=== PATIENT | female | born 1995 | race Caucasian/White ===

== ENCOUNTER 2017-11-27 22:29 | Emergency (ER) | payer BC, OTHER ==
[~2017-11-27] VITALS: Ht 170.2 cm; Wt 71.7 kg
[2017-11-27] MEDS ORDERED: SODIUM CHLORIDE 0.9% 1,000 ML IV ONE ×2 (22:45→23:15)
[2017-11-27 22:54] LABS: Basophils # (auto) 0 uL; Basophils % (auto) 0.8 % (0.0-2.0); Eosinophils # (auto) 0.1 uL; Hematocrit 42.4 % (36.0-46.0); Hemoglobin 14.4 g/dL (12.2-16.2); Lymphocytes # (auto) 2.1 uL; Lymphocytes % (auto) 34.1 % (10.0-50.0); Mean Corpuscular Hgb Conc. 34.1 g/dL (32.0-36.0); Monocytes # (auto) 0.6 uL; Monocytes % (auto) 10.3 % (0.0-12.0); Neutrophils # (auto) 3.4 uL; Neutrophils % (auto) 53.8 % (37.0-80.0); Nucleated Red Blood Cells % 0.1 %; Platelet Count (auto) 242 10^3/uL (140-450); Red Blood Cells 5.17 10^6/uL (4.0-5.20); White Blood Cell 6.3 10^3/uL (4.4-10.8)
[2017-11-27 23:11] LABS: Albumin 3.8 g/dL (3.4-5.0); BUN/Creatinine Ratio 20.5; Potassium 3.6 mmol/L (3.5-5.1)
[2017-11-27 23:14] LABS: Bilirubin, Total 0.3 mg/dL (0.2-1.0); Total Protein 7.5 g/dL (6.4-8.2)
[2017-11-27] MEDS ORDERED: KETOROLAC TROMETH 30 MG/ML 1ML VIAL IV ONE (23:15)
[2017-11-27 23:46] LABS: INR 0.93 (0.9-1.15)
[2017-11-28 01:18] LABS: Urine Bacteria FEW /hpf (None Seen); Urine Blood Negative /uL (Negative); Urine Specific Gravity 1.013 (1.001-1.035); Urine WBC 1 /hpf (0 - 5)
[2017-11-28 02:00] VITALS: BP 118/62
== END 2017-11-28 02:20 | disposition home or self-care (01) ==
LOC: EEVIPCON 22:29 → ER 22:29
DX: G43.909 Migraine, unspecified, not intractable, without status migrainosus (principal); E86.0 Dehydration
CPT/HCPCS: 36415; 80053; 81001; 81025; 84702; 85025; 85610; 85730; 96360; J1885

== ENCOUNTER 2018-08-04 08:15 | Emergency (ER) | payer BC, OTHER ==
[~2018-08-04] VITALS: Ht 170.2 cm; Wt 74.8 kg
[2018-08-04 08:35] VITALS: BP 121/82
[2018-08-04] MEDS ORDERED: IBUPROFEN 800 MG TAB PO ONE (09:30)
[2018-08-06 10:26] LABS: Hepatitis B Surface Antibody Positive
[2018-08-06 15:47] LABS: Hepatitis B Surface Antigen Negative (Negative)
== END 2018-08-04 10:12 | disposition home or self-care (01) ==
LOC: ER 08:15
DX: S61.032A Puncture wound without foreign body of left thumb without damage to nail, initial encounter (principal); Z88.0 Allergy status to penicillin; Z88.1 Allergy status to other antibiotic agents; W27.3XXA Contact with needle (sewing), initial encounter; Y93.89 Activity, other specified; Y92.69 Other specified industrial and construction area as the place of occurrence of the external cause; Y99.8 Other external cause status
CPT/HCPCS: 36415; 73140; 81025; 86703; 86706; 86803; 87340

== ENCOUNTER 2018-08-27 20:44 | Emergency (ER) | payer OTHER ==
[~2018-08-27] VITALS: Ht 170.2 cm; Wt 74.8 kg
[2018-08-27] MEDS ORDERED: SODIUM CHLORIDE 0.9% 2,000 ML IV ONE (21:00)
[2018-08-27] MEDS ORDERED: MORPHINE SULFATE 4 MG/ML SYR/VIAL IV ONE (21:00)
[2018-08-27] MEDS ORDERED: ONDANSETRON HCL 4 MG/2 ML VIAL IV ONE (21:00)
[2018-08-27] MEDS ORDERED: PROMETHAZINE HCL 25 MG/ML 1ML ONE (21:08)
[2018-08-27] MEDS ORDERED: CLINDAMYCIN 900MG IV 50 ML IV ONE (21:15)
[2018-08-27] MEDS ORDERED: PROMETHAZINE HCL 25 MG/ML 1ML IV ONE (21:15)
[2018-08-27 22:12] LABS: Basophils # (auto) 0.1 uL; Basophils % (auto) 0.6 % (0.0-2.0); Eosinophils # (auto) 0 uL; Eosinophils % (auto) 0.1 % (0.0-7.0); Hematocrit 38.9 % (36.0-46.0); Hemoglobin 13.3 g/dL (12.2-16.2); Lymphocytes # (auto) 0.7 uL; Lymphocytes % (auto) 7.3 % (10.0-50.0); Mean Corpuscular Hemoglobin 28.5 pg (28.0-32.0); Mean Corpuscular Hgb Conc. 34.3 g/dL (32.0-36.0); Mean Corpuscular Volume 83.2 fL (80.0-100.0); Monocytes # (auto) 0.8 uL; Monocytes % (auto) 8.5 % (0.0-12.0); Neutrophils # (auto) 8.1 uL; Neutrophils % (auto) 83.5 % (37.0-80.0); Platelet Count (auto) 188 10^3/uL (140-450); Red Blood Cells 4.68 10^6/uL (4.0-5.20); Red Cell Distribution Width 12.8 % (11.8-14.3); White Blood Cell 9.7 10^3/uL (4.4-10.8)
[2018-08-27 22:23] LABS: Alanine Aminotransferase 14 U/L (13-56); Albumin 3.4 g/dL (3.4-5.0); Anion Gap 8 (5-15); Aspartate Aminotransferase 12 U/L (15-37); BUN/Creatinine Ratio 16.5; Blood Urea Nitrogen 13 mg/dL (7-18); Calcium 7.7 mg/dL (8.5-10.1); Carbon Dioxide 22 mmol/L (21-32); Chloride 110 mmol/L (98-107); GFR African American 114 mL/min; GFR Non-African American 94 mL/min; Glucose 92 mg/dL (74-106); Potassium 3.6 mmol/L (3.5-5.1); Sodium 140 mmol/L (136-145)
[2018-08-27 22:26] LABS: Alkaline Phosphatase 80 U/L (45-117); Bilirubin, Total 0.7 mg/dL (0.2-1.0); Total Protein 6.8 g/dL (6.4-8.2)
[2018-08-27 22:44] LABS: Urine WBC None Seen /hpf (0 - 5)
[2018-08-27] MEDS ORDERED: LORazepam 2MG/ML-1ML VIAL IV ONE (22:45)
[2018-08-27] MEDS ORDERED: MAGNESIUM OXIDE 400 MG TAB PO ONE (22:45)
[2018-08-27 22:57] LABS: Urine Bacteria NONE SEEN /hpf (None Seen); Urine Blood Negative /uL (Negative); Urine Specific Gravity 1.002 (1.001-1.035)
[2018-08-27 23:19] LABS: Alcohol, Urine < 3.0 mg/dL (0-5); Amphetamine Screen, Urine NEGATIVE (NEGATIVE); Barbiturate Scree,Urine NEGATIVE (NEGATIVE); Benzodiazephine Screen, Urine NEGATIVE (NEGATIVE); Cannabinoid Screen, Urine NEGATIVE (NEGATIVE); Cocaine Screen, Urine NEGATIVE (NEGATIVE); Opiate Scree,Urine NEGATIVE (NEGATIVE); Phencyclidine Screen, Urine NEGATIVE (NEGATIVE)
[2018-08-28] MEDS ORDERED: ACETAMINOPHEN 325 MG TAB PO ONE (03:45)
[2018-08-28] MEDS ORDERED: IBUPROFEN 400 MG TAB PO ONE (04:36)
[2018-08-28] MEDS ORDERED: IBUPROFEN 800 MG TAB PO ONE (04:45)
[2018-08-28 05:58] VITALS: BP 102/56
== END 2018-08-28 06:05 | disposition home or self-care (01) ==
LOC: ER 20:46 → EEVIPCON 20:46 → ER 08-28 06:05
DX: J02.9 Acute pharyngitis, unspecified (principal); R00.0 Tachycardia, unspecified
CPT/HCPCS: 36415; 80053; 80307; 81001; 83605; 83735; 84443; 85025; 87040; 93005; 94761; 96361; 96365; 96366; 96375; 99284; J2060; J2270; J2405; J2550; J3490; J7030

== ENCOUNTER → 2019-03-06 | Outpatient (CLI) | payer OTHER ==
[2019-03-07 08:52] LABS: Hepatitis B Surface Antibody Positive
[2019-03-07 10:03] LABS: Hepatitis B Surface Antigen Negative (Negative)
== END | disposition home or self-care (01) ==
LOC: LAB 10:45
PROVIDERS: ATTEND Nurse Practitioner
DX: Z77.21 Contact with and (suspected) exposure to potentially hazardous body fluids (principal); W46.1XXA Contact with contaminated hypodermic needle, initial encounter; Y93.89 Activity, other specified; Y92.89 Other specified places as the place of occurrence of the external cause; Y99.8 Other external cause status
CPT/HCPCS: 36415; 86703; 86706; 86803; 87340